=== PATIENT | male | born 1960 ===

== ENCOUNTER 2023-01-11 08:40 | Outpatient (CLI) | payer OTHER, SELFPAY ==
--- NOTE | 2023-01-11 08:45 | CT_ITS ---
WS: [id number] LDCT LUNG CANCER SCREENING TECHNIQUE: Noncontrast CT of the chest with coronal and sagittal reformatted images. CLINICAL INFORMATION: smoker COMPARISON: None. DLP: 136.93 mGy.cm DIvol: Mean CTDIvol: 2.40 (mGy) All CT scans at [facility] use at least one of these dose optimization techniques: automat ed exposure control; mA and/or kV adjustment per patient size (includes targeted exams where dose is matched to clinical indication); or iterative reconstruction. FINDINGS:Noncalcified nodule RIGHT upper lobe measuring 6 mm. Tiny subpleural nodule RIGHT middle lob e. Noncalcified nodule RIGHT lower lobe measuring 5 to 6 mm. Subsegmental atelectasis RIGHT lower lob e along the fissure. Opacity along the LEFT fissure measuring 7.5 mm. A few additional nodules in the LEFT lower lobe measuring up to 6 mm. Normal caliber thoracic aorta. No mediastinal or hilar lymphadenopathy. No axillary lymphadenopathy. Tiny esophageal hiatal hernia. Adrenal glands are normal. Bilateral renal cysts partially visualized. Noncontrast pancreas appears normal. CT/CT lung screening 24010 IMPRESSION: LUNG-RADS: 2-Benign Appearance or Behavior FOLLOW UP: 12 Month: Continue annual screening with LDCT
== END 2023-01-11 08:41 | disposition home or self-care (01) ==
LOC: RAD 08:45
PROVIDERS: PCP Internal Medicine Pulmonary Disease; Visit Provider Internal Medicine Pulmonary Disease
DX: Z12.2 Encounter for screening for malignant neoplasm of respiratory organs (principal); F17.210 Nicotine dependence, cigarettes, uncomplicated; K44.9 Diaphragmatic hernia without obstruction or gangrene
CPT/HCPCS: 36415; 71271; 80053; 85025

== ENCOUNTER 2023-01-16 07:59 | Outpatient (CLI) | payer OTHER, SELFPAY ==
[2023-01-16 08:23] VITALS: PULSE 84; RESP 18; O2SAT 94
[2023-01-16] MEDS: albuterol 2.5 mg/3 mL Neb INHALATION (08:23)
[2023-01-16 08:28] VITALS: PULSE 90
== END 2023-01-16 08:00 | disposition home or self-care (01) ==
LOC: RT 08:03
PROVIDERS: Visit Provider Internal Medicine Pulmonary Disease
DX: R06.02 Shortness of breath (principal)
CPT/HCPCS: 94060; 94618; 94729; J7613

== ENCOUNTER 2023-02-12 09:24 | Outpatient (CLI) | payer OTHER, SELFPAY ==
--- NOTE | 2023-02-12 | ECG_ITS ---
[facility] Test Date: 2023-02-12 Pat Name: Marco Antonio Tolliver Department: Room: Gender: Male Manager Validation: : 1960 Requested By: Brandon Roberto Order Number: [id number] Veronika MD: Dennis Tim M.D. Interpretive Statements NAME OF STUDY: LEXISCAN SESTAMIBI STRESS TEST INDICATION: [exertional cp, ] Procedure: At the baseline, the blood pressure was 146/95 mmHg with a heart rate of 62 bpm. The electrocardiogram showed normal sinus rhythm, normal axis with normal ST and T's. The Lexiscan was infused over a period of 20 seconds. A total of 0.4 mg of Lexiscan was infused. The stress phase was continued for a total of 5 minutes. Heart rate was at the end of stress phase was 72 bpm and a blood pressure of 144/88 mmHg. The EKG at the peak infusion revealed normal sinus rhythm with no significant ST-T wave changes. Sestamibi was injected 20 seconds after the Lexiscan infusion. Blood pressure at the end of recovery phase was 147/86 mmHg with a heart rate of 71 bpm. Conclusion: 1. Normal EKG response to Lexiscan infusion 2. No Lexiscan induced chest pain or cardiac arrhythmia. 3. Normal blood pressure and heart rate response. 4. Sestamibi/sestamibi perfusion scan pending; see separate report. Electronically Signed On 02-27-2023 17:09:39 CDT by Dennis Tim M.D. [id number]
--- NOTE | 2023-02-12 09:08 | NMCV_ITS ---
NM monse perf SPECT r/s* [id number] Marco Antonio Tolliver Age: 63 Gender: M : 1960 Exam Date: 02/12/2023 09:08 Ordering Phys: Brandon Hendrickson MD Technologist: JOSH Rojas Exam Location: [facility] Indications: SHORTNESS OF BREATH STRESS TEST Please see separate stress test report in [facility] for full findings IMAGE PROTOCOL Rest/Stress 1 Lexiscan Day Radiopharmaceutical Dose (mCi) Administration Site Administered by Rest: Tc-99m 10.4 IV JOSH Shore Sestamibi Stress:Tc-99m 32.3 IV JOSH Shore Sestamibi Rest: 12-Feb-2023 60 Discovery 630 Stress: 12-Feb-2023 30 Discovery 630 0.4mg Lexiscan. Images obtained in supine and prone position. SPECT RESULTS Technical Quality: Excellent Raw Data Analysis: Normal Image Corrections: No attenuation or motion correction applied Summed Stress Score: 2 Summed Rest Score: 6 Summed Difference Score: 0 PERFUSION FINDINGS There is reduced radiotracer uptake on resting images in apical inferior and apical septal bhakta. This improves on stress images. This is consistent with attenuation artifact. No evidence of ischemia. FUNCTIONAL RESULTS (calculated via Gated SPECT) Stress Image LV EF (%): 71 Stress EDV (mL):96 TID: 0.95 Stress ESV (mL):28 FUNCTIONAL FINDINGS: There is normal left ventricular systolic function. IMPRESSIONS 1. Attenuation artifact seen in apical inferior and apical septal bhakta. No evidence of ischemia seen 2. LV systolic function is normal Dennis Tim MD (Electronically Signed) Final Date: 17 February 2023 09:25 S
[2023-02-12 09:29] VITALS: BMI 35.5
[2023-02-12] MEDS: regadenoson 0.4 Mg/5 ml Syringe IVP (10:23)
[2023-02-12 10:34] VITALS: BP 147/95; PULSE 71
== END 2023-02-12 09:25 | disposition home or self-care (01) ==
LOC: CDL 09:25
PROVIDERS: Visit Provider Internal Medicine Pulmonary Disease
DX: R06.02 Shortness of breath (principal)
CPT/HCPCS: 36415; 78452; 93017; 96374; A9500; J2785

== ENCOUNTER 2024-06-30 08:06 | Outpatient (CLI) | payer OTHER, SELFPAY ==
[2024-06-30 08:37] LABS: Basophils # 0.1 10^3/uL (0.0-0.1); Basophils % 0.5 %; Eosinophils # 0.4 10^3/uL (0.0-0.8); Eosinophils % 3.7 %; Hematocrit 55.5 % (37-53); Lymphocytes # 2.9 10^3/uL (0.8-4.8); Lymphocytes % 26.1 %; Mean Corpuscular Hemoglobin 30.1 pg (27-33); Mean Corpuscular Volume 91.3 fl (82-101); Mean Platelet Volume 10.4 fL (7.4-10.4); Monocytes # 1.2 10^3/uL (0.2-0.9); Monocytes % 10.5 %; Neutrophils # 6.43 10^3/uL (1.8-7.7); Neutrophils % 58.7 %; Nucleated Red Blood Cells % 0 %; Platelet Count 295 10^3/cmm (157-399); Red Blood Count 6.08 10^6/uL (3.85-5.65); Red Cell Distribution Width 13.1 % (12.1-15.1); White Blood Count 10.97 10^3/uL (3.29-11.43)
[2024-06-30 08:53] LABS: INR 0.92 (0.83-1.21); Prothrombin Time (Patient) 12.6 Seconds (12.0-15.1)
[2024-06-30 09:02] LABS: Anion Gap 13.5 (5-19); Blood Urea Nitrogen 14 mg/dL (8-23); Calcium 9.5 mg/dL (8.5-10.5); Carbon Dioxide 29 mmol/L (22-29); Chloride 106 mmol/L (98-107); Glomerular Filtration Rate 67.8 mL/min (90-130); Glucose 114 mg/dL (65-115); Osmolality Calculated 299 mOsm/kg (285-295); Potassium 4.5 mmol/L (3.5-5.1); Sodium 144 mmol/L (136-145)
== END 2024-06-30 08:07 | disposition home or self-care (01) ==
LOC: LAB 08:10
PROVIDERS: Visit Provider Internal Medicine Cardiovascular Disease
DX: R06.09 Other forms of dyspnea (principal); R07.9 Chest pain, unspecified
CPT/HCPCS: 36415; 80048; 85025; 85610

== ENCOUNTER 2024-07-01 07:30 | Outpatient (CLI) | payer OTHER, SELFPAY ==
[2024-07-01] VITALS (16 sets, daily range): BP systolic 114–187; BP diastolic 65–108; PULSE 66–84; RESP 12–23; TEMP 36.7; O2SAT 91–96; BMI 37.1
--- NOTE | 2024-07-01 07:30 | XACV_ITS ---
Exam Room: 2 Ht: 168 cm Wt: 104 kg BSA: 2.25 m2 Gender: Male : 1960 Any Known Allergies: No known allergies Exam Priority: Routine Procedure(s): Procedure Description: Diagnostic procedure Procedure Description: Left Heart Catheterization Procedure Description: Left ventriculography Procedure Description: Coronary Angiography Aisha MORELOS; Diagnostic Cath Status: Elective Diagnostic Findings * Left Main has no disease. * Circumflex has no disease. * Right Coronary Artery has no disease. * Mid Left Anterior Descending: mild 40% stenosis, KADEN: 3 flow. * Coronary angiography shows right dominance. * Indication for the angiogram: Unexplained shortness of breath chest pain upon [id number] exertion in the patient who is obese hyperlipidemic and cigarette smoker. Stress test last year was negative however patient continues to have worsening of symptoms which was thought to be angina:. Patient refused another test. It is the reason we proceeded with left heart catheterization due to his high risk profile. Conclusions 1. There is mild coronary artery disease with one vessel disease. 2. Normal left ventricular systolic function. Ejection fraction of 65%. Recommendations * Continue current medical management and risk factor modification. * Continue aspirin statin, continue aggressive management for blood pressure control, lose weight. Diagnostic RX Recommendation: medical therapy and/or counseling LV EDP: 11 mmHg Ventriculography Ejection Fraction: 65.0 % Left Ventriculography Findings: * Normal left ventricle ejection, normal left ventricular end-diastolic pressure. Pressures Phase:Rest AO : 127 / 81 ( 99 ) @ 9:54:00 AM 130 / 79 ( 102 ) @ 9:56:00 AM 128 / 86 ( 100 ) @ 9:56:00 AM 132 / 86 ( 101 ) @ 10:05:00 AM 138 / 82 ( 106 ) @ 10:05:00 AM LV : 126 / -3 / 9 @ 9:56:00 AM 128 / -3 / 11 @ 9:56:00 AM 135 / 0 / 19 @ 10:04:00 AM 123 / 1 / 19 @ 10:05:00 AM Valves Phase:DefaultPhase AV : 0.0 @ 9:18:48 AM AV Mean Gradient: 0.0 @ 9:18:48 AM Clinical Evaluation EBL: 5mL-10mL Procedural Details Procedure Consent Obtained. Admit Source: Out Patient. Pre-Procedure Time Out. Identified patient by full name and date of as verbalized by the patient/guarantor. Does the consent match the physician's order: Yes. Accurate & Complete Informed Consent: Yes. Inpatient/Outpatient History & Physical on Chart: Yes. If H&P is completed, is and addenduem needed: Yes; If yes, is the addendum complete: N/A. Visualize and Verify Site with Patient/Guarantor: N/A. Relevant Radiology Images available: N/A. The risks, benefits, and alternatives of sedation and/or procedure were discussed by physician. The patient agrees to continue. Procedure started. [facility] Clinical Fraility Score: 3: Managing Well. Research Attorney Indications: Worsening Angina. Chest Pain Symptom Assessment: Typical Angina Symptoms. Correct patient, site and procedure confirmed by cath team. Current diagnosis: Unstable angina. PERRLA. 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 Lungs clear x 5 lobes. IV Site on Arrival: 20 gauge in the right anticubital. IV Site on Arrival: 20 gauge in the left anticubital. IV Fluids: 0.9% NaCl at KVO. 0 mL infused prior to senior cytogenetics laboratory director. Pre Procedural Pulses: bilateral posterior tibial was 3+. Pre Procedural Pulses: bilateral dorsalis pedis was 3+. Pre Procedural Pulses: bilateral radial was 3+. right groin was prepped with chloroprep then draped in the usual sterile fashion. right radial was prepped with chloroprep then draped in the usual sterile fashion. right brachial was prepped with chloroprep then draped in the usual sterile fashion. Physician notified. Baseline sample Acquired. HR: 75 BPM. Physician arrived. Physician scrubbed in. Immediate Pre-Procedure Time Out. Correct Patient: Yes; Correct Procedure: Yes; Correct Site: Yes; Correct Patient Position: Yes; Correct Supplies: Yes; Dried Flammable Prep: Yes; Blood Products Available: No;. Lidocaine 1% infiltrated to the right radial. Arterial access obtained. A 5 belarusian Tomas catheter in over wire. EDP Sample taken: LV 126/-4,9; HR: 77 BPM; SpO2: 94%. Pullback taken: LV 128/-4,11; AO 130/79(102); Mean: 13mmHg, Peak to Peak: 3mmHg, SEP: 7sec/min; HR: 79 BPM; SpO2: 95%. Multiple views taken of right coronary artery. Catheter redirected to the LCA. Multiple views taken of left coronary artery. Catheter removed over the exchange wire. A 5 belarusian Angled Pig catheter in over wire. Wire out. EDP Sample taken: LV 135/-1,19; HR: 72 BPM; SpO2: 96%. LV gram performed in HERNANDEZ @ 10 mL/second for a total of 30 mL. Pullback taken: LV 123/1,19; AO 132/86(101); Mean: 0mmHg, Peak to Peak: 0mmHg, SEP: 6sec/min; HR: 79 BPM; SpO2: 96%. Physician scrubbed out. Post Procedure: Pulses reassessed and unchanged. PERRLA. 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 No VTE prophylaxis required. Medication's Wasted: Lidocaine 1% = 18 mL. Medication's Wasted: Nitro = 49.8 mg. Medication's Wasted: Heparin = 1000 units. Total IV fluids: 30 mL. Complications: None. Estimated blood loss: 5mL-10mL. Post-op diagnosis: Non-obstructive CAD. Responsiveness - Normal response to verbal stimuli; alert and oriented, PERRLA. Airway - Unaffected, no intervention required; spontaneous ventilation. Circulation: W/N/L, pulses unchanged. Nausea/Vomiting: No. A TR Band was successful obtaining hemostatsis at the Right Radial artery insertion site. Procedure completed. Patient transferred by wheelchair to CPRU. Vital chart was stopped. Access Site Site: Right Radial artery Sheath Size: 6 Fr Hemostasis Method: TR Band Hemostasis Success: Successful Procedure Medications Start: 8:34 AM Stop: 8:34 AM Medication: Versed Amount: 1 mg Route: I.V. Start: 8:34 AM Stop: 8:34 AM Medication: Fentanyl Amount: 50 mcg Route: I.V. Start: 8:52 AM Stop: 8:52 AM Medication: Nitrogylcerin Amount: 200 mcg Route: I.A. Start: 8:54 AM Stop: 8:54 AM Medication: Heparin Amount: 5000 units Route: I.V. I, the attending physician, have reviewed and verified all procedure medications. Yes, all medications given per verbal order History/Risk Factors Hypertension: Yes Dyslipidemia: Yes Peripheral Arterial Disease (PAD): No Myocardial Infarction (GA): No Obesity: No Renal Disease: No Tobacco Use: Current/Recent(w/in 1 year) Prior Interventions PCI: No CABG: No Valve Surgery: No Report Signatures Finalized by Vel Leonard MD on 07/27/2024 10:34 PM
[2024-07-01] MEDS: aspirin 325 mg Tablet PO (08:00)
[2024-07-01] MEDS: diphenhydrAMINE 50 mg Capsule PO (08:00)
--- NOTE | 2024-07-01 08:32 | W.PM.OPSFHP ---
Same Day Surgery H&P Indication for Procedure/HPI DATE OF PROCEDURE: July 01, 2024 CHIEF COMPLAINT/INDICATIONFOR SURGICAL PROCEDURE: Worsening of chest pain along with increasing shortness of breath and frequency of pain suspicious for unstable angina 64-year-old male past medical significant hypertension hyperlipidemia continues tobacco abuse has been noticing worsening of shortness of breath along with chest pain for the last 1 year. Patient had negative stress test in 2022, though he continues to do worse. According to him he cannot go uphill and walk much for long as he feels chest pressure he has to sit down to get over it. He thinks his symptoms are worsening. Blood pressure not under good control. Shortness of breath has been more unusual than COPD. Patient had negative stress test in the past last year, he is a truck and transport mechanic and would like to be 100% sure. Given his symptoms and risk factors such as hypertension hyperlipidemia continues tobacco abuse and characteristics of the pain suspicious for unstable angina he was recommended with left heart catheterization. PREOP DIAGNOSIS: Chest pain/shortness of breath suspicious for angina PLANNED PROCEDURE: Operation Date: 07/01/24 08:30 Proposed Procedures p Cardiac Catheterization - RLHC w/wo LV becca(Bilateral) - Vel Leonard MD ROS As above Medications/Allergies* Home Medications Medication Instructions Recorded Confirmed Type aspirin 81 mg tablet,delayed 81 mg PO DAILY 05/29/24 07/01/24 History release (Adult Low Dose Aspirin) Allergies/Adverse Reactions Allergy/AdvReac Type Severity Reaction Status Date / Time No Known Allergies Allergy Verified 07/01/24 08:22 Current Medications: Generic Name Dose Route Start Last Admin Trade Name Freq PRN Reason Stop Dose Admin Sodium Chloride 1,000 mls @ 50 mls/hr 07/01/24 07:30 07/01/24 08:19 Sodium Chloride 0.9% IV 07/02/24 03:29 Not Given .Q20H ONE Pertinent History/Comorbid Conditions* Family History (Updated 12/28/22 @ 11:42 by Lisette Hunt) Diabetes Mother Cancer Mother colon breast Social History Smoking and tobacco/nicotine status: current every day tobacco/nicotine user cigarettes Packs smoked per day: 1 Years cigarettes smoked: 40 Pertinent Exam Findings alert, oriented x 3, clear to auscultation bilaterally, regular rate & rhythm, operative site marked and procedure specific exam findings HEENT: No cyanosis. No icterus. No pallor. HEART: Regular S1 and S2. No murmur, rub or gallop. LUNGS: Clear to auscultate bilaterally. CENTRAL NERVOUS SYSTEM: Grossly nonfocal. EXTREMITIES: Lower extremities with out edema bilaterally. Pulses palpable in the lower extremities, both dorsalis pedis and posterior tibial. Conscious Sedation Assessment PATIENT ASSESSED PRIOR TO SEDATION, WITH NO CHANGE NOTED: Yes AIRWAY EVAL/ANESTHESIA PLAN: ASA II, Risks, benefits & alternatives of sedation and/or procedure discussed and Patient agrees to continue as planned Recommendations Surgery/Procedure today Other Plans: Proceed with left heart catheterization patient has been explained with the help of clothing pattern preparer who is his son-in-law by bedside all risk-benefit and alternative for the procedure he understand risk for stroke major bleed hematoma bruising urgent or emergent bypass surgery contrast induced nephropathy leading to temporary or permanent renal failure. He agrees to it and would like to proceed with it. Coding Level of Care Code Acute Code for Chg Fwd
--- NOTE | 2024-07-01 09:20 | SUR.PHASEII ---
POST CATH NOTE Received patient from custodial laborer. Status post cardiac catheterization via the right radial approch. TR band in place to right radial and brachial venous access has pressure bandage in place. MD in to discuss findings with the patient/family. Vitals and assessments per flowsheet. Call light within reach. Informed to call for needs.
== END 2024-07-01 13:19 | disposition home or self-care (01) ==
PROVIDERS: Visit Provider Internal Medicine Cardiovascular Disease
DX: I25.10 Atherosclerotic heart disease of native coronary artery without angina pectoris (principal); I10 Essential (primary) hypertension; E78.5 Hyperlipidemia, unspecified; J44.9 Chronic obstructive pulmonary disease, unspecified; F17.210 Nicotine dependence, cigarettes, uncomplicated
CPT/HCPCS: 36415; 93458; 96365; 96374; 99152; 99153; C1769; C1887; C1894; J1644; J2250; J3010; J3490; J7050; Q0163; Q9967